=== PATIENT | female | born 1990 | race Caucasian/White ===

== ENCOUNTER 2018-10-12 09:05 | Emergency (ER) | payer OTHER, MEDICAID, SELFPAY ==
[2018-10-12 09:09] VITALS: BP 113/77; PULSE 80; RESP 16; TEMP 37.1; O2SAT 100; BMI 25.8
--- NOTE | 2018-10-12 09:19 | DI.RAD.S_ITS ---
PROCEDURE: XR ANKLE LT MIN 3V INDICATIONS: slipped and fell TECHNIQUE: 3 views of the ankle were acquired. COMPARISON: [facility], CR, XR FOOT LT MIN 3V, 10/12/2018, 9:26. FINDINGS: Bones: No fractures or dislocations. Ankle mortise is normally aligned. No suspicious bony lesions. Soft tissues: No tibiotalar joint effusion. Achilles tendon appears normal. IMPRESSION: No acute osseous abnormality of the left ankle. Dictated by: Jose Neumann M.D. on 10/12/2018 at 8:51 Approved by: Jose Neumann M.D. on 10/12/2018 at 8:51
--- NOTE | 2018-10-12 09:21 | DI.RAD.S_ITS ---
PROCEDURE: XR FOOT LT MIN 3V INDICATIONS: slipped and fell TECHNIQUE: 3 views of the foot were acquired. COMPARISON: [facility], CR, XR ANKLE LT MIN 3V, 10/12/2018, 9:26. FINDINGS: Bones: No fractures or dislocations. No suspicious bony lesions. Soft tissues: No tibiotalar joint effusion. The overlying soft tissues are within normal limits. IMPRESSION: No acute osseous abnormality is evident involving the left foot. Dictated by: Jose Neumann M.D. on 10/12/2018 at 8:47 Approved by: Jose Neumann M.D. on 10/12/2018 at 8:51
--- NOTE | 2018-10-12 09:36 | ED.LOWEXIN ---
HPI - Extremity Injury (Lower) General Chief Complaint: Extremity Injury, Lower Stated Complaint: left foot ankle/foot pain, bleeding, fell Time Seen by Provider: 10/12/18 09:27 Source: patient Mode of arrival: ambulatory Limitations: no limitations History of Present Illness HPI Narrative: The patient states she slipped on ice on her driveway this morning and bent her left foot back as she fell. Patient complains of pain over the dorsum of the left foot, as well as swelling proximal to the left great toe. Patient also sustained an abrasion, which she states would not stop bleeding. Patient states that now, the bleeding has stopped. No other injuries or complaints. Severity scale (1-10): 4 Related Data Home Medications Medication Instructions Recorded Confirmed benzonatate 200 mg PO TID PRN 10/12/18 10/12/18 levocetirizine 5 mg PO DAILY 10/12/18 10/12/18 ranitidine HCl 150 mg PO QPM 10/12/18 10/12/18 venlafaxine 75 mg PO DAILY 10/12/18 10/12/18 Allergies Allergy/AdvReac Type Severity Reaction Status Date / Time No Known Allergies Allergy Uncoded 10/12/18 09:15 Review of Systems Review of Systems All systems reviewed & are unremarkable except as noted in HPI and below Constitutional Denies chills, Denies fever(s), Denies lethargy and Denies weakness Eyes Denies change in vision, Denies eye discharge, Denies irritation and Denies loss of vision ENT Ears, Nose, Mouth, and Throat: Denies change in voice, Denies neck pain and Denies sore throat Cardiovascular Denies chest pain, Denies irregular heart rhythm, Denies lightheadedness, Denies palpitations, Denies dyspnea, Denies dyspnea on exertion and Denies orthopnea Respiratory Denies cough, Denies dyspnea, Denies dyspnea on exertion and Denies wheezing Gastrointestinal Gastrointestinal: Denies abdominal pain, Denies change in bowel habits, Denies diarrhea, Denies nausea and Denies vomiting Genitourinary Denies hematuria, Denies flank pain, Denies urinary incontinence and Denies urinary urgency Musculoskeletal Denies neck pain Comments: left foot pain Integumentary/Breasts Denies pruritus, Denies erythema, Denies rash and Denies wounds Comments: abrasions Neurologic Denies confusion, Denies loss of vision and Denies weakness Psychiatric Denies anxiety, Denies confusion, Denies depression, Denies homicidal ideation and Denies suicidal ideation Endocrine Denies palpitations Hematologic/Lymphatic Denies easy bruising Allergic/Immunologic Denies wheezing PFSH Medical History Healthy adult (Acute) Closed left radial fracture (Acute) Surgical History No pertinent past surgical history (Acute) Social History Smoking Status: Never smoker Exam Initial Vital Signs Initial Vital Signs: Vital Signs Temperature 98.7 F 10/12/18 09:09 Pulse Rate 80 10/12/18 09:09 Respiratory Rate 16 10/12/18 09:09 Blood Pressure 113/77 10/12/18 09:09 Pulse Oximetry 100 10/12/18 09:09 Const General: cooperative and well developed Nutritional Appearance: well nourished Orientation: alert, awake, oriented x3 and not confused HENMT Head: normocephalic and atraumatic Ears: external ears normal and TM's normal bilaterally Nose: external nose normal and No nasal discharge Face and sinus: sinuses nontender, face symmetric, no sinus tenderness and No dry mucous membranes Mouth: oral mucosae normal and moist mucous membranes Teeth and gingiva: dentition normal Throat: tonsils normal and uvula midline Eyes General: appearance normal, both eyes and all related structures Eyelids: eyelids normal Conjunctivae: conjunctivae normal Sclera: sclerae normal Pupils: PERRL EOM: EOM intact bilaterally Neck Neck: normal visual inspection, trachea midline, No lymphadenopathy, No midline deformity and No JVD Lymphatic: No lymphedema Chest Chest: normal inspection of the chest Resp Effort & Inspection: normal respiratory effort, able to speak in complete sentences, no respiratory distress and no use of accessory muscles Auscultation: clear to auscultation bilaterally, no rales, no rhonchi and no wheezes Cardio Rate: regular rate Rhythm: regular rhythm Heart Sounds: no click, no gallops, no murmurs and no rubs Pulses: normal peripheral pulses GI Inspection: non-distended Palpation: soft, no hepatosplenomegaly, No guarding, No pulsatile mass and No tender Auscultation: normal bowel sounds Back/Spine/Pelvis Back: No CVA tenderness Cervical Spine: cervical ROM normal and No pain with cervical ROM Thoracic/Lumbar Spine: thoracic and lumbar spine normal to inspection Skin General: no rashes or lesions noted, No jaundice and No petechiae Trauma: abrasion ( 1.5 cm, over left 1st MTP joint) Neuro General: alert, oriented x3, gait normal and no focal motor deficits Speech: speech normal Extrem Other: the patient has mild edema and moderate tenderness over her 1st and 2nd metatarsal bones over the dorsum of her left foot. She is no swelling or deformity of the rest of the foot and no deformity of the affected area. Distal pulses are intact. Psych Appearance: well kempt Mental Status: mental status grossly normal Attitude: cooperative Thought Content: normal and suicidality Judgment: judgment good Course Course Narrative: Patient was worked up with x-rays of her left ankle and foot. These were found to be negative. Patient's wound was cleansed, and I felt she was stable for discharge home. Orders Ordered: ED Orders 10/12/18 09:19 XR ankle LT min 3V Stat 10/12/18 09:21 XR foot LT min 3V Stat Vital Signs - 8 hr 10/12/18 09:09 Temperature 98.7 F Pulse Rate 80 Respiratory Rate 16 Blood Pressure 113/77 Pulse Oximetry 100 MDM - Extremity Injury (Lower) Medical Records Attestation: I reviewed the patient's medical records. Imaging Data ft x-ray: Attestation: I personally reviewed and interpreted this imaging study as follows: My impression: negative Radiologist's impression: PROCEDURE: XR FOOT LT MIN 3V INDICATIONS: slipped and fell TECHNIQUE: 3 views of the foot were acquired. COMPARISON: [facility], , XR ANKLE LT MIN 3V, 10/12/2018, 9:26. FINDINGS: Bones: No fractures or dislocations. No suspicious bony lesions. Soft tissues: No tibiotalar joint effusion. The overlying soft tissues are within normal limits. IMPRESSION: No acute osseous abnormality is evident involving the left foot. Dictated by: Jose Neumann M.D. on 10/12/2018 at 8:47 Approved by: Jose Neumann M.D. on 10/12/2018 at 8:51 ankle x-ray: Attestation: I personally reviewed and interpreted this imaging study as follows: My impression: negative Radiologist's impression: PROCEDURE: XR ANKLE LT MIN 3V INDICATIONS: slipped and fell TECHNIQUE: 3 views of the ankle were acquired. COMPARISON: [facility], CR, XR FOOT LT MIN 3V, 10/12/2018, 9:26. FINDINGS: Bones: No fractures or dislocations. Ankle mortise is normally aligned. No suspicious bony lesions. Soft tissues: No tibiotalar joint effusion. Achilles tendon appears normal. IMPRESSION: No acute osseous abnormality of the left ankle. Dictated by: Jose Neumann M.D. on 10/12/2018 at 8:51 Approved by: Jose Neumann M.D. on 10/12/2018 at 8:51 Discharge Plan Departure Patient Disposition: Home Clinical Impression: Contusion of foot, left, Sprain of foot, left Discharge Date/Time: 10/12/18 10:23 Interventions: ED Discharge Assessment Last Done: 10/12/18 10:00 Instructions: DI for Foot Sprain Activity Restrictions/Additional Instructions: Your x-rays look good. There is no evidence of broken bones or dislocation. Please use ice on the painful areas until the swelling and pain have improved. You may also use ibuprofen and Tylenol to help with the discomfort. Prescriptions: No Action venlafaxine 75 mg capsule,extended release 24hr 75 mg PO DAILY RF: 0 benzonatate 100 mg capsule 200 mg PO TID PRN (Reason: Cough) RF: 0 ranitidine HCl 150 mg tablet 150 mg PO QPM RF: 0 levocetirizine 5 mg tablet 5 mg PO DAILY RF: 0 Referrals: Cass Graham [Primary Care Provider] -
[2018-10-12 10:00] VITALS: BP 107/62; PULSE 64; RESP 20; TEMP 37; O2SAT 97
== END 2018-10-12 10:23 | disposition home or self-care (01) ==
PROVIDERS: Emergency Provider Emergency Medicine; PCP Nurse Practitioner
DX: S93.602A Unspecified sprain of left foot, initial encounter (principal); S90.32XA Contusion of left foot, initial encounter; W01.0XXA Fall on same level from slipping, tripping and stumbling without subsequent striking against object, initial encounter
CPT/HCPCS: 73610; 73630; 99282; 99283